=== PATIENT | male | born 1960 | race Caucasian/White ===

== ENCOUNTER 2016-10-13 01:08 | Observation (INO) | payer BC ==
[~2016-10-13] VITALS: Ht 185.4 cm; Wt 102.4 kg
[2016-10-13] VITALS (7 sets, daily range): BP systolic 116–137; BP diastolic 75–94; PULSE 47–78; TEMP 36.4–37.5; O2SAT 96–99; Ht 185.4 cm; Wt 102.4 kg
[~2016-10-13 01:08] MED LIST: ASPEC81 PO; LPT20 PO
[2016-10-13] MEDS ORDERED: SODIUM CHLORIDE 0.9% 1000ML 1,000 ML IV ONE (01:30)
[2016-10-13 01:33] LABS: BASO % 0.6 %; BASO ABS # 0.04 K/uL (0-0.2); COMPLETE YES; EOS % 3.3 %; HEMATOCRIT 44.7 % (42-52); IG% 0.3 %; LYMPH % 27.4 %; LYMPH ABS # 1.76 K/uL (1.2-3.4); MEAN CELL VOLUME 87.1 fL (80-100); MEAN CORPUSCULAR HEMOGLOBIN 30.2 pg (25-34); MEAN CORPUSCULAR HGB CONC 34.7 g/dl (32-36); MEAN PLATELET VOLUME 10.7 fL (7.4-10.4); MONO % 11.4 %; PLATELET COUNT 179 K/uL (130-400); RED BLOOD COUNT 5.13 M/uL (4.7-6.1); WHITE BLOOD COUNT 6.43 K/uL (4.8-10.8)
[2016-10-13] MEDS ORDERED: DILTIAZEM HCL 5 MG/ML 5 ML VIAL IV STA (01:41)
[2016-10-13 01:43] LABS: URINE APPEARANCE CLEAR (CLEAR); URINE BILIRUBIN NEG (NEG); URINE COLOR YELLOW; URINE NITRITE NEG (NEG); URINE SPECIFIC GRAVITY 1.006 (1.000-1.030); UROBILINOGEN NEG (NEG); ZZUR CULT IF INDIC CLEAN CATCH NO
[2016-10-13] MEDS ORDERED: CLB/200 PO (01:43)
[2016-10-13] MEDS ORDERED: METO25TA3 PO (01:43)
[2016-10-13 01:54] LABS: MANUAL MICROSCOPIC REQUIRED? NO; REVIEW REQ? NO
[2016-10-13 01:55] LABS: BUN/CREATININE RATIO 18.2 (10-20); CREATININE 1.1 mg/dl (0.60-1.40); MAGNESIUM 2.4 mg/dl (1.8-2.4); POTASSIUM 3.7 mmol/L (3.5-5.1)
[2016-10-13 02:06] LABS: ALB/GLOB RATIO 1.3 (0.9-2); CKMB/CK RATIO 1.1 (0-3.0); THYROID STIMULATING HORMONE 3.51 uIu/ml (0.300-4.500)
[2016-10-13] MEDS ORDERED: POTASSIUM CHLORIDE 10 MEQ TABCR PO STA (02:19)
[2016-10-13] MEDS ORDERED: POTASSIUM CHLORIDE 10 MEQ TABCR ONE (02:25)
[2016-10-13 02:29] LABS: LYME DISEASE AB IGG NEG (NEG); LYME DISEASE AB IGM NEG (NEG)
[2016-10-13 02:34] LABS: PARTIAL THROMBOPLASTIN RATIO 1.1
[2016-10-13] MEDS ORDERED: HEPARIN IV LOW DOSE NO BOLUS STA (03:01)
[2016-10-13] MEDS ORDERED: METOPROLOL SUCC 50MG EXT REL TAB PO STA (03:12)
[2016-10-13] MEDS ORDERED: ACETAMINOPHEN 325 MG TAB PO PRN (03:15)
[2016-10-13] MEDS ORDERED: LORAZEPAM 2 MG/ML 1 ML VIAL IV PRN (03:15)
[2016-10-13] MEDS ORDERED: TRAMADOL HCL 50 MG TAB PO PRN (03:15)
[2016-10-13] MEDS ORDERED: MoRPHine SULFATE 4 MG/ML 1 ML CARP\\VIAL IV PRN (03:15)
[2016-10-13] MEDS ORDERED: NITROGLYCERIN 0.4 MG SL PER TAB CHARGE SL PRN (03:15)
[2016-10-13] MEDS ORDERED: ONDANSETRON INJ 2 MG/ML 2 ML VIAL IV PRN (03:15)
[2016-10-13] MEDS ORDERED: LORAZEPAM INJ 0.5 MG in SYRINGE 0.75 ML IV PRN (03:30)
--- NOTE | 2016-10-13 03:53 | EMERGENCY ROOM VISIT NOTE ---
History First contact with patient: 01:20 Chief Complaint: RAPID HEART RATE Stated Complaint: AFIB Nursing Triage Summary: dc/o bout of " afib" denies any cp or sob. for 40 minutes History of Present Illness The patient is a 56 year old male who presents to the Emergency Room with complaints of palpitations that have been ongoing for the past 45 minutes. The patient has a past history of atrial fibrillation, and he states is similar to those episodes. He was feeling well all day, and states that he got up to use the bathroom tonight, when he felt his heart racing. The patient is not having chest pain or shortness of breath. No headache or dizziness. The patient has not had recent illness. He is on metoprolol and a baby aspirin, and states he took his medications earlier today. The patient is otherwise healthy and rates his current discomfort a 4/10. Review of Systems More than 10 systems were reviewed and otherwise negative with the exception of history of present illness. Past Medical/Surgical History Medical Problems: (1) Atrial fibrillation, new onset (2) Heart murmur (3) Hyperlipidemia (4) recurrent atrial fibrillation Family History Cardiac disorder FATHER MOTHER Diabetes mellitus MOTHER FH: atrial fibrillation FH: heart disease Hypertension Social History Smoking Status: Never Smoker Alcohol Use: none Drug Use: none Marital Status: in relationship Housing Status: lives with significant other Occupation Status: employed Current/Historical Medications Scheduled Aspirin (Aspirin EC Low Dose), 81 MG PO QAM Atorvastatin (Atorvastatin Calcium), 20 MG PO QAM Celecoxib (CeleBREX), 200 MG PO QAM Metoprolol Succ (Toprol Xl) (Toprol-Xl), 25 MG PO DAILY Allergies Coded Allergies: Penicillins (Verified Allergy, Unknown, childhood reaction, 10/13/16) Physical Exam Vital Signs Date Time Temp Pulse Resp B/P (MAP) Pulse Ox O2 Delivery O2 Flow Rate FiO2 10/13/16 02:06 83 18 144/98 99 Room Air 10/13/16 01:55 97 18 140/87 96 Room Air 10/13/16 01:21 121 10/13/16 01:20 118 20 134/113 99 Room Air 10/13/16 01:18 97 Room Air 10/13/16 01:18 98 Room Air 10/13/16 01:11 36.6 119 18 143/72 96 Room Air Physical Exam VITALS: Vitals are noted on the nurse's note and reviewed by myself. Vital signs stable. GENERAL: Well-developed, well-nourished, white male, who is in no acute distress and resting comfortably. Patient is cooperative with the examination. HEAD: Normocephalic atraumatic. EARS: External ear normal. External auditory canals clear, tympanic membranes pearly quarles without erythema or effusion bilaterally. EYES: Pupils equal round and reactive to light and accommodation. Conjunctivae without injection, sclerae without icterus. Extraocular movements intact. NOSE: Patent, turbinates without inflammation or discharge. MOUTH: Mucous membranes moist. Tonsils are not enlarged. Pharynx without erythema, blood, or exudate. Uvula midline. Airway patent. NECK: Supple without nuchal rigidity. No lymphadenopathy. No thyromegaly. Cervical spine is nontender. HEART: Irregularly irregular without murmur gallop or rub LUNGS: Clear to auscultation bilaterally without wheezes, rales or rhonchi. No retractions or accessory muscle use. ABDOMEN: Positive normal bowel sounds x 4. Soft, nontender, without masses or organomegaly. No guarding or rebound tenderness. MUSCULOSKELETAL: No muscle atrophy, erythema, or edema noted. Full range of motion without joint tenderness in all extremities. Medical Decision & Procedures Laboratory Results 10/13/16 01:20 Red Blood Count 5.13, Mean Corpuscular Volume 87.1, Mean Corpuscular Hemoglobin 30.2, Mean Corpuscular Hemoglobin Concent 34.7, Mean Platelet Volume 10.7, Neutrophils (%) (Auto) 57.0, Lymphocytes (%) (Auto) 27.4, Monocytes (%) (Auto) 11.4, Eosinophils (%) (Auto) 3.3, Basophils (%) (Auto) 0.6, Neutrophils # (Auto ) 3.67, Lymphocytes # (Auto) 1.76, Monocytes # (Auto) 0.73, Eosinophils # (Auto ) 0.21, Basophils # (Auto) 0.04 10/13/16 01:20 Test 10/13/16 01:20 10/13/16 01:29 10/13/16 01:31 White Blood Count 6.43 K/uL (4.8-10.8) Red Blood Count 5.13 M/uL (4.7-6.1) Hemoglobin 15.5 g/dL (14.0-18.0) Hematocrit 44.7 % (42-52) Mean Corpuscular Volume 87.1 fL (80-100) Mean Corpuscular Hemoglobin 30.2 pg (25-34) Mean Corpuscular Hemoglobin Concent 34.7 g/dl (32-36) Platelet Count 179 K/uL (130-400) Mean Platelet Volume 10.7 fL (7.4-10.4) Neutrophils (%) (Auto) 57.0 % Lymphocytes (%) (Auto) 27.4 % Monocytes (%) (Auto) 11.4 % Eosinophils (%) (Auto) 3.3 % Basophils (%) (Auto) 0.6 % Neutrophils # (Auto) 3.67 K/uL (1.4-6.5) Lymphocytes # (Auto) 1.76 K/uL (1.2-3.4) Monocytes # (Auto) 0.73 K/uL (0.11-0.59) Eosinophils # (Auto) 0.21 K/uL (0-0.5) Basophils # (Auto) 0.04 K/uL (0-0.2) RDW Standard Deviation 40.6 fL (36.4-46.3) RDW Coefficient of Variation 12.6 % (11.5-14.5) Immature Granulocyte % (Auto) 0.3 % Immature Granulocyte # (Auto) 0.02 K/uL (0.00-0.02) Activated Partial Thromboplast Time 27.6 SECONDS (21.0-31.0) Partial Thromboplastin Ratio 1.1 Anion Gap 8.0 mmol/L (3-11) Est Creatinine Clear Calc Drug Dose 94.0 ml/min Estimated GFR () 85.9 Estimated GFR (Non- 74.1 BUN/Creatinine Ratio 18.2 (10-20) Calcium Level 9.0 mg/dl (8.5-10.1) Magnesium Level 2.4 mg/dl (1.8-2.4) Total Bilirubin 0.8 mg/dl (0.2-1) Aspartate Amino Transf (AST/SGOT) 23 U/L (15-37) Alanine Aminotransferase (ALT/SGPT) 36 U/L (12-78) Alkaline Phosphatase 91 U/L (45-117) Total Creatine Kinase 238 U/L (39-308) Creatine Kinase MB 2.6 ng/ml (0.5-3.6) Creatine Kinase MB Ratio 1.1 (0-3.0) Total Protein 7.5 gm/dl (6.4-8.2) Albumin 4.2 gm/dl (3.4-5.0) Globulin 3.3 gm/dl (2.5-4.0) Albumin/Globulin Ratio 1.3 (0.9-2) Lipase 96 U/L (73-393) Thyroid Stimulating Hormone (TSH) 3.510 uIu/ml (0.300-4.500) Lyme Disease IgG Antibody NEG (NEG) Lyme Disease IgM Antibody NEG (NEG) Urine Color YELLOW Urine Appearance CLEAR (CLEAR) Urine pH 6.0 (4.5-7.5) Urine Specific [place] 1.006 (1.000-1.030) Urine Protein NEG (NEG) Urine Glucose (UA) NEG (NEG) Urine Ketones NEG (NEG) Urine Occult Blood NEG (NEG) Urine Nitrite NEG (NEG) Urine Bilirubin NEG (NEG) Urine Urobilinogen NEG (NEG) Urine Leukocyte Esterase NEG (NEG) Bedside Troponin I 0.000 ng/ml (0-0.045) Medications Administered Medications (Trade) Dose Ordered Sig/Jv Route Start Time Stop Time Status Last Admin Dose Admin Sodium Chloride 1,000 ml @ 999 mls/hr Q1H1M ONCE IV 10/13/16 01:30 10/13/16 02:30 DC 10/13/16 01:29 999 MLS/HR Diltiazem HCl (Cardizem Inj) 20 mg NOW STAT IV 10/13/16 01:41 10/13/16 01:42 DC 10/13/16 02:01 20 MG Potassium Chloride (Klor-Con M10) 40 meq STK-MED ONCE .ROUTE 10/13/16 02:25 10/13/16 02:26 DC 10/13/16 02:27 40 MEQ ED Course Physical exam and history were performed. Nursing notes and EMR were reviewed. Patient appears to have palpitations for the past 2 hours. EKG was performed and was atrial fibrillation with RVR at 120 beats per minute. There is a nonspecific ST abnormality, however this appears similar in appearance when the patient has been in atrial fibrillation in the past. IV access was established and labs were obtained. Chest x-ray was performed. The patient was hydrated with normal saline and given IV Cardizem. The patient's blood work is as above and was reviewed. He does not have a significantly elevated white cell count, gross anemia, bandemia, or significant electrolyte imbalance. Troponin 1 is negative. TSH is euthyroid. Lyme is negative. The case was discussed with my attending physician, Dr. Toscano, we feel the patient is not stable for discharge home. He did have improvement of his symptoms after the Cardizem, but he remained in atrial fibrillation around a rate of 70. The case was discussed with the [facility], who agreed to evaluate the patient here in the emergency department. Please see their dictation for further patient course, plan, and disposition. The chart was completed utilizing [employer] Speech Voice Recognition Software. Grammatical errors, random word insertions, pronoun errors, and incomplete sentences are an occasional consequence of this system due to software limitations, ambient noise, and hardware issues. Any formal questions or concerns about the content, text, or information contained within the body of this dictation should be directly addressed to the provider for clarification. . Medical Decision Differential diagnosis includes, but is not limited to: Myocardial infarction, dysrhythmia, pericarditis, pneumothorax, aortic aneurysm/dissection, DVT/PE, anxiety, GERD, PUD, electrolyte imbalance, thyroid disorder, pneumonia, bronchitis, pancreatitis, and others Impression Primary Impression: Atrial fibrillation with rapid ventricular response Departure Information Referrals Manuel Alvarado M.D. (PCP) Patient Instructions My [facility]
[2016-10-13] MEDS ORDERED: SODIUM CHLOR 0.45% + 20MEQ KCL 1,000 ML IV SCH (04:00)
[2016-10-13] MEDS: HEPARIN 25,000 UNIT/500ML D5W 500 ML IV PRN ×2 (04:00→11:16)
[2016-10-13 04:47] LABS: PROTHROMBIN TIME (PATIENT) 10.7 SECONDS (9.0-12.0)
--- NOTE | 2016-10-13 05:49 | HISTORY & PHYSICAL EXAMINATION ---
DATE OF ADMISSION: 10/13/2016 PRIMARY CARE PHYSICIAN: Dr. Alvarado. CHIEF COMPLAINT: AFib. HISTORY OF PRESENT ILLNESS: HX obtained from px and records. Medical history is significant for paroxysmal AFib, hyperlipidemia, arthritis. Recent confinement last year for AFib. Patient had spontaneous conversion to normal sinus rhythm. Discharged on Toprol XL and aspirin. Few weeks ago, the patient received a call from PCP. He was told that outpx blood work was normal except that patient was a little anemic. (outpx Hg 12.9, 09/12/16) No workup recommended at that time. Patient stopped taking aspirin because his stools kind of looked dark. No abdominal pian, no unusual weight loss. A week ago, the patient noted transient bubbling sensation in his heart, left-sided, palpitations, similar to sensation of irregular heart beat in the past. This morning, the patient woke up to go use the bathroom. After going back to bed, he felt funny sensation in his heart again. No actual chest pain. No actual shortness of breath. No unusual stress. In the Emergency Room, the patient noted to be in rapid AFib, heart rate 120s. Patient was given IV Cardizem and IV fluids. Heart rate currently 80s. MEDICAL HISTORY: As above. No previous colonoscopies in the past. SURGERIES: None. HOME MEDICATIONS: Include Lipitor, Toprol-XL, Viagra, celecoxib, aspirin held last week. ALLERGIES: TO PENICILLIN. FAMILY HISTORY: Heart disease. 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 REVIEW OF SYSTEMS: As per HPI. all other ROS negative. PHYSICAL EXAMINATION: VITAL SIGNS: Blood pressure was noted to be 144/72, pulse rate 120 later 80, RR 18, temperature 36.6, sats 96 on room air. GENERAL: Noted to be obese, slightly anxious, no respiratory distress. SKIN: Normal color. HEENT: [place] palpebral conjunctivae. Dry mucosa. NECK: No JVD. Supple. CHEST: Clear to auscultation. HEART: Irregular. ABDOMEN: Soft. NT RECTAL: Intact sphincter. Brown stool, heme negative. EXTREMITIES: No edema. no tenderness NE no gross focality LABS: Hemoglobin was noted to be 15.5, hematocrit 40.7, white cell count 10, platelets 179. Sodium 146, potassium 4.7, chloride 109, CO2 of 29, BUN 20, creatinine 1, glucose was noted to be 97. trop 0 Chest x-ray as per my interpretation. no infiltrate as EKG as per my interpretation, rate 120, AFib, PRWP ASSESSMENT: 1. Recurrent atrial fibrillation rate controlled after initial intervention in the ER unknown precipitant intermittent symptoms since last week. 2. Hyperlipidemia, statin therapy. PLAN: Observation PCU. facilitate home beta kassi, may need dose titration low dose IV heparin now for thromboembolic prevention. TTE, Cardio consult RE recurrent AFib. Further management as per Cardiology, NPO, sips in anticiopation of procedure. DVT prophylaxis, heparin. Full code. MTDD
--- NOTE | 2016-10-13 06:57 | DIAGNOSTIC IMAGING REPORT ---
CHEST 2 VIEWS ROUTINE CLINICAL HISTORY: Atrial fibrillation. COMPARISON STUDY: Chest radiograph October 09, 2015. FINDINGS: Lung volumes are normal. Lungs are clear. There is no pneumothorax or pleural effusion. Cardiac size is normal. Mediastinal contours are normal. There is no evidence of pulmonary edema. IMPRESSION: No acute cardiopulmonary findings. Electronically signed by: Arvin Enamorado M.D. 10/13/2016 6:56 AM Dictated Date/Time: 10/13/2016 6:55 AM
[2016-10-13] MEDS ORDERED: IV FLUIDS COMPLETED PRN (07:30)
[2016-10-13] MEDS: ATORVASTATIN 20 MG TAB PO SCH (08:39)
[2016-10-13 09:35] LABS: MANUAL MICROSCOPIC REQUIRED? NO; REVIEW REQ? NO; URINE APPEARANCE CLEAR (CLEAR); URINE BILIRUBIN NEG (NEG); URINE COLOR YELLOW; URINE EPITHELIAL CELL AUTO 0-5 /lpf (0-5); URINE NITRITE NEG (NEG); URINE SPECIFIC GRAVITY 1.016 (1.000-1.030); UROBILINOGEN NEG (NEG)
[2016-10-13 10:31] LABS: PARTIAL THROMBOPLASTIN RATIO 1.3
--- NOTE | 2016-10-13 11:04 | Progress Note ---
Medicine Progress Note Date & Time of Visit: Oct 13, 2016 at 10:50. Subjective Pt was seen and examined Lying in bed comfortable with at bedside Pt said that he feels fine he is very eager to go home denies any chest pain, palpitation, dizziness and sob Objective Last 8 Hrs Date Time Temp Pulse Resp B/P (MAP) Pulse Ox O2 Delivery O2 Flow Rate FiO2 10/13/16 08:00 Room Air 10/13/16 07:51 36.5 47 18 127/78 (94) 98 Room Air 10/13/16 03:15 36.5 78 18 137/94 97 Room Air 10/13/16 02:57 86 19 127/91 97 Physical Exam: General- No acute distress Head- atraumatic Eyes- PERRL, EOMI ENT- oropharynx clear Neck- supple, no JVD Lungs- clear to auscultation and percussion Heart- regular rhythm; no murmur Abdomen- normal bowel sounds, soft Extremities- no pretibial edema, no calf tenderness Neuro- alert, oriented x 3; PERRL, EOMI; no facial palsy; no dysarthria Skin- warm & dry Laboratory Results: Last 24 Hours Test 10/13/16 01:20 10/13/16 01:29 10/13/16 01:31 10/13/16 04:35 White Blood Count 6.43 K/uL Red Blood Count 5.13 M/uL Hemoglobin 15.5 g/dL Hematocrit 44.7 % Mean Corpuscular Volume 87.1 fL Mean Corpuscular Hemoglobin 30.2 pg Mean Corpuscular Hemoglobin Concent 34.7 g/dl Platelet Count 179 K/uL Mean Platelet Volume 10.7 fL Neutrophils (%) (Auto) 57.0 % Lymphocytes (%) (Auto) 27.4 % Monocytes (%) (Auto) 11.4 % Eosinophils (%) (Auto) 3.3 % Basophils (%) (Auto) 0.6 % Neutrophils # (Auto) 3.67 K/uL Lymphocytes # (Auto) 1.76 K/uL Monocytes # (Auto) 0.73 K/uL Eosinophils # (Auto) 0.21 K/uL Basophils # (Auto) 0.04 K/uL RDW Standard Deviation 40.6 fL RDW Coefficient of Variation 12.6 % Immature Granulocyte % (Auto) 0.3 % Immature Granulocyte # (Auto) 0.02 K/uL Activated Partial Thromboplast Time 27.6 SECONDS Partial Thromboplastin Ratio 1.1 Sodium Level 146 mmol/L Potassium Level 3.7 mmol/L Chloride Level 109 mmol/L Carbon Dioxide Level 29 mmol/L Anion Gap 8.0 mmol/L Blood Urea Nitrogen 20 mg/dl Creatinine 1.10 mg/dl Est Creatinine Clear Calc Drug Dose 94.0 ml/min Estimated GFR () 85.9 Estimated GFR (Non- 74.1 BUN/Creatinine Ratio 18.2 Random Glucose 97 mg/dl Calcium Level 9.0 mg/dl Magnesium Level 2.4 mg/dl Total Bilirubin 0.8 mg/dl Aspartate Amino Transf (AST/SGOT) 23 U/L Alanine Aminotransferase (ALT/SGPT) 36 U/L Alkaline Phosphatase 91 U/L Total Creatine Kinase 238 U/L Creatine Kinase MB 2.6 ng/ml Creatine Kinase MB Ratio 1.1 Total Protein 7.5 gm/dl Albumin 4.2 gm/dl Globulin 3.3 gm/dl Albumin/Globulin Ratio 1.3 Lipase 96 U/L Thyroid Stimulating Hormone (TSH) 3.510 uIu/ml Lyme Disease IgG Antibody NEG Lyme Disease IgM Antibody NEG Urine Color YELLOW Urine Appearance CLEAR Urine pH 6.0 Urine Specific [place] 1.006 Urine Protein NEG Urine Glucose (UA) NEG Urine Ketones NEG Urine Occult Blood NEG Urine Nitrite NEG Urine Bilirubin NEG Urine Urobilinogen NEG Urine Leukocyte Esterase NEG Bedside Troponin I 0.000 ng/ml Prothrombin Time 10.7 SECONDS Prothromb Time International Ratio 1.0 Test 10/13/16 08:00 10/13/16 09:20 10/13/16 10:10 Troponin I < 0.015 ng/ml Urine Color YELLOW Urine Appearance CLEAR Urine pH 7.0 Urine Specific [place] 1.016 Urine Protein NEG Urine Glucose (UA) NEG Urine Ketones NEG Urine Occult Blood NEG Urine Nitrite NEG Urine Bilirubin NEG Urine Urobilinogen NEG Urine Leukocyte Esterase NEG Urine WBC (Auto) 0 /hpf Urine RBC (Auto) 0-4 /hpf Urine Hyaline Casts (Auto) 0 /lpf Urine Epithelial Cells (Auto) 0-5 /lpf Urine Bacteria (Auto) NEG Activated Partial Thromboplast Time 34.3 SECONDS Partial Thromboplastin Ratio 1.3 Assessment & Plan Recurrent Paroxysmal atrial fibrillation EKG on admission showed Atrial fibrillation with rapid ventricular response rate is controlled Converted back to NSR spontaneously this morning On heparin drip Received cardizem 20mg x1 IV Asymptomatic Pt stopped asa due to mild anemia, Will resume aspirin CHADSVASC score of 0 Continue metoprolol 25mg daily Echo pending Cardiology on board, waiting for input Dyslipidemia Continue Lipitor Anxiety On lorazepam prn DVT px on heparin drip Code Status Full code Consultants: cardiology Current Inpatient Medications: Current Inpatient Medications Medications (Trade) Dose Ordered Sig/Jv Route Start Time Stop Time Status Last Admin Dose Admin Potassium Chloride/Sodium Chloride 1,000 ml @ 60 mls/hr [id number] IV 10/13/16 04:00 11/12/16 03:59 10/13/16 03:45 60 MLS/HR Acetaminophen (Tylenol Tab) 650 mg Q4H PRN PO 10/13/16 03:15 11/12/16 03:14 Nitroglycerin (Nitrostat Tab) 0.4 mg UD PRN SL 10/13/16 03:15 11/12/16 03:14 Atorvastatin Calcium (Lipitor Tab) 20 mg QAM PO 10/13/16 09:00 11/12/16 08:59 10/13/16 08:39 20 MG Metoprolol Succinate (Toprol Xl Tab) 25 mg DAILY PO 10/14/16 09:00 11/13/16 08:59 Tramadol HCl (Ultram Tab) 25 mg Q6H PRN PO 10/13/16 03:15 11/12/16 03:14 Ondansetron HCl (Zofran Inj) 4 mg Q6H PRN IV 10/13/16 03:15 11/12/16 03:14 Lorazepam (Ativan Inj) 0.5 mg Q4H PRN IV 10/13/16 03:15 11/12/16 03:14 Morphine Sulfate (MoRPHine SULFATE INJ) 4 mg Q3H PRN IV 10/13/16 03:15 10/27/16 03:14 Lorazepam 0.5 mg/ Syringe 1 ml @ 1 mls/min Q4H PRN IV 10/13/16 03:30 11/12/16 03:29 Heparin Sodium/ Dextrose 500 ml @ 20 mls/hr Q24H PRN IV 10/13/16 04:00 11/12/16 03:59 10/13/16 04:00 20 MLS/HR Miscellaneous (Iv Fluids Completed) 1 ea PRN PRN N/A 10/13/16 07:30 10/13/17 07:29
[2016-10-13] MEDS ORDERED: HEPARIN IV BOLUS 4,500 UNIT in SYRINGE 0 ML IV STA (11:07)
--- NOTE | 2016-10-13 11:32 | Cardiology Consultation ---
Cardiology Consultation Date of Service Oct 13, 2016. (Priscila Lino, GHADA) Cardiology Consultation Requesting Physician: Dr. Malcolm Attending Dredge Pipeman: Dr. Gorman HISTORY OF PRESENT ILLNESS: Patient is a 56-year-old male with a past medical history significant for paroxysmal atrial fibrillation diagnosed in October, maintained on low-dose Toprol 25 mg and aspirin 81 mg for stroke prophylaxis. Other history includes dyslipidemia. patient was recently told he was mildly anemic on outpatient labs and stopped his aspirin approximately 10 days ago. He reports having intermittent darker colored stools without gross bleeding. On review hemoglobin was 12.9. Patient states he was in usual state of health yesterday and last evening. He went to bed as usual, he awoke around 1:00 a.m. to use the restroom and developed sudden onset palpitations. He was brought to the emergency room for evaluation and found to have recurrent atrial fibrillation with rapid ventricular response. He was started on IV Cardizem and heparin drip. Patient converted to normal sinus rhythm this morning prior to consultation around 5:40 a.m.. Patient states he has been taking is metoprolol daily. He does note an episode of palpitations this past Wednesday that lasted 1-2 hours and resolve spontaneously. Otherwise he denies recent or recurrent palpitations. He is active and exercises regularly denying chest pain or shortness of breath. REVIEW OF SYSTEMS: See HPI for pertinent positives. All other 10 point review of systems is negative. ALLERGIES: PENICILLIN. MEDICATIONS: Reported Home Medications Medications Dose Route/Sig Max Daily Dose Days Date Category CeleBREX (Celecoxib) 200 Mg Cap 200 Mg PO QAM 10/13/16 Reported Toprol-Xl (Metoprolol Succinate) 25 Mg Tabcr 25 Mg PO DAILY 10/13/16 Reported Aspirin EC Low Dose (Aspirin) 81 Mg Ectab 81 Mg PO QAM 100 10/10/15 Rx Atorvastatin Calcium (Atorvastatin) 20 Mg Tab 20 Mg PO QAM 90 10/10/15 Rx PMH: 1. PAF 2. Dyslipidemia 3. Osteoarthritis 4. ED SURGICAL HISTORY: None FAMILY HISTORY: Mother with congestive heart failure, passing away age 66. Father passing away after [place] age 55. Brother with afib. Sister with stroke due to AVM SOCIAL HISTORY: No history of alochol or tobacco abuse. . 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 PHYSICAL EXAMINATION: Last 8 Hrs Date Time Temp Pulse Resp B/P (MAP) Pulse Ox O2 Delivery O2 Flow Rate FiO2 10/13/16 08:00 Room Air 10/13/16 07:51 36.5 47 18 127/78 (94) 98 Room Air 10/13/16 03:15 36.5 78 18 137/94 97 Room Air GENERAL: He is an age appropriate male, comfortable in no acute distress. VITAL SIGNS: Heart rate 60, blood pressure is 135/80 equal in both arms. HEENT EXAMINATION: Normocephalic, atraumatic. Nares without discharge. Throat was clear. NECK: Supple without thyromegaly, lymphadenopathy, JVD or bruit. LUNGS: Clear to auscultation. CARDIOVASCULAR EXAMINATION: Regular with normal S1, S2. S2 appears narrowly split. There is a grade 2/6 systolic murmur. There is no diastolic murmur. PMI is nondisplaced. ABDOMEN: Soft, nontender. EXTREMITIES: Without cyanosis or clubbing. There is no peripheral edema. There are intact distal pulses. There is no brachial femoral delay. NEUROLOGIC: The patient is intact. DATA: EKG on admission: Atrial fibrillation with rapid ventricular response Nonspecific ST abnormality Abnormal ECG When compared with ECG of 09-OCT-2015 07:37, Atrial fibrillation has replaced Sinus rhythm Vent. rate has increased BY [address] now depressed in Anterior leads Chest xray on admission: IMPRESSION: No acute cardiopulmonary findings. Telemetry reviewed - Afib with RVR on admission, rates improved with IV cardizem. Converting to NSR/sinus bradycardia at 5:40 AM. Currently sinus bradycardia with HR 45-55 bpm. Prior Data reviewed - Echocardiogram dated October 2015: The left ventricle is normal in size. There is normal left ventricular wall thickness. Left ventricular systolic function is normal. The left ventricular wall motion is normal. Ejection Fraction = 60-65 IMPRESSION and PLAN: 56-year-old male 1. Paroxysmal atrial fibrillation with RVR -converted to NSR with IV Cardizem -on toprol 25 mg daily. Limited by bradycardia -Was on ASA 81 mg, stopped due to mild anemia. No evidence of acute GI bleed. Hbg improved on admission. Resume ASA 81 mg daily. -CHADSVASC score of 0 (low risk for stroke). May not need fdc anticoagulation therapy -update 2D echocardiogram Case discussed with Dr. Gorman.Will follow. (Priscila Lino PA-C) CARDIOLOGY ATTENDING ADDENDUM: The patient was seen and personally examined. Agree with Priscila Lino PA-C's findings and plans as documented above with additions as noted below. S: patient feels well. When in AF notes a sensation in his neck. No angina. No lightheadedness now or when in AF. Exam: SB 50 bpm, reg rhythm, no murmurs Data: Telemetry reveals AF to SB with cardizem (since discontinued) no pauses. Baseline resting sinus rate is 48-55 bpm. Impression: Recurrent AF baseline Sinus bradycardia , asymptomatic, however limits dose of AV елена blockers Low risk of cardioembolic stroke, [id number] score of 0. Plan: Hg is normal, despite recent concern of mild anemia as outpt. DC heparin infusion, start Xarelto for now, however given low risk of stroke will likely plan to DC on ASA alone if remains in SR. Continue metoprolol succinate 25 mg daily. Add low dose flecainide 50 mg BID for rhythm control. Echo with normal LV wall thickness, no significant structural heart disease, and patient is physically active with no symptoms to suggest underlying ischemia. Monitor on telemetry for flecainide initiation. Yaakov Gorman DO (Chester Gorman,Angel.O.)
[2016-10-13] MEDS ORDERED: FLECAINIDE ACETATE 100 MG TAB PO ONE (12:58)
--- NOTE | 2016-10-13 13:00 | ECHOCARDIOGRAM REPORT ---
*NOTICE TO RECEIVING REPUBLICAN AGENCY This information is strictly Confidential and protected under [place] law. [place] law prohibits you from making any further disclosure of this information unless further disclosure is expressly permitted by the written consent of the person to whom it pertains or is authorized by law. A general authorization for the release of medical or other information is not sufficient for this purpose. Hospital accepts no responsibility if the information is made available to any other person, INCLUDING THE PATIENT. Interpretation Summary * Name: LISSET CENTENO Study Date: 10/13/2016 11:25 AM BP: 119/76 mmHg * Patient Location: [facility] HR: 47 * : 1960 (M/d/yyyy) Gender: Male Height: 73 in * Age: 56 yrs Ethnicity: [place] Weight: 230 lb * Ordering Physician: Samson Malcolm * Referring Physician: Self, Referred * Performed By: Helga Torres RCS * * Reason For Study: A-FIB * BSA: 2.3 m2 * -- Conclusions -- * There is normal left ventricular wall thickness. * The left ventricular wall motion is normal. * Ejection Fraction = 60-65%. * The right ventricle is normal in size and function. * Trace aortic regurgitation. Procedure Details * A complete two-dimensional transthoracic echocardiogram was performed (2D, M-mode, Doppler and color flow Doppler). Left Ventricle * The left ventricle is normal in size. * There is normal left ventricular wall thickness. * Left ventricular systolic function is normal. * Ejection Fraction = 60-65%. * The left ventricular wall motion is normal. Right Ventricle * The right ventricle is normal in size and function. * The right ventricular systolic function is normal as assessed by tricuspid annular plane systolic excursion (TAPSE) (normal >1.5 cm). Atria * The left atrial size is normal. * Right atrial size is normal. * There is no evidence of atrial septal defect, but resolution does not allow assessment for a patent foramen ovale. Mitral Valve * The mitral valve is normal. * There is no mitral valve stenosis. * Significant mitral regurgitation is absent. Tricuspid Valve * The tricuspid valve is normal. * There is no tricuspid stenosis. * Significant tricuspid regurgitation is absent. * Doppler findings do not suggest pulmonary hypertension. Aortic Valve * The aortic valve is trileaflet. * Aortic stenosis is absent. * Trace aortic regurgitation. Pulmonic Valve * The pulmonary valve is not well seen, but the Doppler examination is normal without significant regurgitation or stenosis. Great Vessels * The aortic root and proximal ascending aorta are normal sized. Pericardium/Pleural * There is no pericardial effusion. Great Vessels * Normal inferior vena cava diameter and respiratory variation suggests normal central venous pressure. MMode 2D Measurements and Calculations IVSd 1.2 cm IVSs 1.7 cm LVIDd 5.8 cm LVIDs 3.8 cm LVPWd 0.89 cm LVPWs 1.4 cm IVS/LVPW 1.3 FS 34.5 % EDV(Teich) 164.1 ml ESV(Teich) 60.9 ml EF(Teich) 62.9 % EDV(cubed) 191.4 ml ESV(cubed) 53.8 ml EF(cubed) 71.9 % % IVS thick 44.6 % % LVPW thick 57.5 % LV mass(C)d 238.4 grams LV mass(C)dI 104.4 grams/m\S\2 LV mass(C)s 223.9 grams LV mass(C)sI 98.0 grams/m\S\2 SV(Teich) 103.2 ml SI(Teich) 45.2 ml/m\S\2 SV(cubed) 137.6 ml SI(cubed) 60.3 ml/m\S\2 Ao root diam 3.4 cm Ao root area 9.0 cm\S\2 ACS 2.2 cm LVOT diam 2.0 cm LVOT area 3.2 cm\S\2 LVAd ap4 33.4 cm\S\2 LVLd ap4 8.1 cm EDV(MOD-sp4) 112.4 ml EDV(sp4-el) 116.6 ml LVAs ap4 17.0 cm\S\2 LVLs ap4 6.6 cm ESV(MOD-sp4) 38.5 ml ESV(sp4-el) 37.1 ml EF(MOD-sp4) 65.7 % EF(sp4-el) 68.2 % LVAd ap2 29.7 cm\S\2 LVLd ap2 8.4 cm EDV(MOD-sp2) 89.9 ml EDV(sp2-el) 89.4 ml LVAs ap2 21.8 cm\S\2 LVLs ap2 7.6 cm ESV(MOD-sp2) 51.8 ml ESV(sp2-el) 52.9 ml EF(MOD-sp2) 42.3 % EF(sp2-el) 40.8 % LVLd %diff 2.8 % EDV(MOD-bp) 101.4 ml LVLs %diff 13.6 % ESV(MOD-bp) 48.1 ml EF(MOD-bp) 52.6 % SV(MOD-sp4) 73.8 ml SI(MOD-sp4) 32.3 ml/m\S\2 SV(MOD-sp2) 38.0 ml SI(MOD-sp2) 16.6 ml/m\S\2 SV(MOD-bp) 53.3 ml SI(MOD-bp) 23.4 ml/m\S\2 SV(sp4-el) 79.5 ml SI(sp4-el) 34.8 ml/m\S\2 SV(sp2-el) 36.5 ml SI(sp2-el) 16.0 ml/m\S\2 Doppler Measurements and Calculations MV E max jose miguel 81.8 cm/sec MV A max jose miguel 45.7 cm/sec MV E/A 1.8 MV P1/2t max jose miguel 86.3 cm/sec MV P1/2t 76.7 msec MVA(P1/2t) 2.9 cm\S\2 MV dec slope 329.5 cm/sec\S\2 MV dec time 0.38 sec Ao V2 max 194.3 cm/sec Ao max PG 15.1 mmHg Ao max PG (full) 8.4 mmHg VICKY(V,A) 2.1 cm\S\2 VICKY(V,D) 2.1 cm\S\2 AI max jose miguel 418.4 cm/sec AI max PG 70.0 mmHg AI dec slope 108.8 cm/sec\S\2 AI P1/2t 1126.7 msec LV V1 max PG 6.7 mmHg LV V1 max 129.2 cm/sec PA V2 max 120.1 cm/sec PA max PG 5.8 mmHg TR max jose miguel 232.2 cm/sec
[2016-10-13] MEDS ORDERED: RIVAROXABAN 20 MG TAB PO SCH (16:00)
[2016-10-13] MEDS ORDERED: [UNRECOGNIZED DRUG - REMARK] ONE (16:00)
[2016-10-13] MEDS ORDERED: NURSING VERBAL MED ORDER ONE (19:30)
[2016-10-13] MEDS: FLECAINIDE ACETATE 100 MG TAB PO SCH (20:59)
[2016-10-14 04:00] VITALS: BP 124/78; PULSE 56; TEMP 36.7; O2SAT 96
[2016-10-14 05:47] LABS: BASO ABS # 0.04 K/uL (0-0.2); COMPLETE YES; EOS % 4.1 %; IG% 0.2 %; LYMPH % 32.3 %; LYMPH ABS # 1.34 K/uL (1.2-3.4); MEAN CELL VOLUME 87.6 fL (80-100); MEAN CORPUSCULAR HEMOGLOBIN 29.9 pg (25-34); MEAN CORPUSCULAR HGB CONC 34.1 g/dl (32-36); MEAN PLATELET VOLUME 10.5 fL (7.4-10.4); MONO % 10.8 %; NEUT % 51.6 %; PLATELET COUNT 154 K/uL (130-400); RED BLOOD COUNT 4.45 M/uL (4.7-6.1); WHITE BLOOD COUNT 4.15 K/uL (4.8-10.8)
[2016-10-14 06:23] LABS: BUN/CREATININE RATIO 16.7 (10-20); CALCIUM 8.5 mg/dl (8.5-10.1); POTASSIUM 4.7 mmol/L (3.5-5.1)
[2016-10-14 07:56] VITALS: BP 119/77; PULSE 46; TEMP 36.5; O2SAT 96
[2016-10-14] MEDS: ATORVASTATIN 20 MG TAB PO SCH (08:13)
[2016-10-14] MEDS: FLECAINIDE ACETATE 100 MG TAB PO SCH (08:13)
[2016-10-14] MEDS ORDERED: METOPROLOL SUCC 25MG EXT REL TAB PO SCH (09:00)
--- NOTE | 2016-10-14 10:01 | Cardiology Follow-Up ---
Subjective General Date of Service: Oct 14, 2016. Chief Complaint: afib Pt evaluation today including: conversation w/ patient, physical exam, chart review, lab review, review of studies, conversation w/ insurance healthcare consultant, review of inpatient medication list History of Present Illness Patient feeling well this AM. Ambulating in halls without dizziness, syncope or near syncope. No exertional chest pain or SOB. No palpitations. Telemetry reviewed - maintained NSR/sinus bradycardia since yesterday AM. Sinus diane in the 40's during rest/sleep. Asymptomatic. Allergies Coded Allergies: Penicillins (Verified Allergy, Unknown, childhood reaction, 10/13/16) Social History Smoking Status: Never Smoker Hx Tobacco Use In Past Year?: No Hx Alcohol Use - Type And Amou: No Hx Substance Use - Type And Am: No Problem List Medical Problems: (1) Atrial fibrillation with rapid ventricular response Status: Acute Review of Systems Respiratory: No cough, No wheezing, No shortness of breath, No dyspnea at rest , No hemoptysis Cardiac: No chest pain, No orthopnea, No PND, No edema, No palpitations Physical Exam Vital Signs Last Vital Signs Documentation Date Time Temp Pulse Resp B/P (MAP) Pulse Ox O2 Delivery O2 Flow Rate FiO2 10/14/16 08:00 Room Air 10/14/16 07:56 36.5 46 16 119/77 (43) 96 Physical Exam Constitutional: General Apperance: heathly-appearing Level of Distress: NAD Ambulation: ambulating normally Psychiatric: Mental Status: active & alert Orientation: to time, to place, to person Head: normocephalic Eyes: Pupils: PERRLA Neck: supple Lungs: Respiratory effort: no dyspnea Auscultation: no wheezing, no rales/crackles, no rhonchi Cardiovascular: Heart Auscultation: RRR, normal S1, normal S2, no murmurs Peripheral Pulses: Dorsalis Pedis Pulse: normal on the left, normal on the right Abdomen: Bowel Sounds: normal Inspection & Palpation: soft, non-distended Assessment and Plan Assessment and Plan IMPRESSION and PLAN: 56-year-old male 1. Paroxysmal atrial fibrillation with RVR, converted to NSR/Sinus diane on IV Cardizem -continue home dose Metoprolol Succinate 25 mg daily -Flecainide 50 mg BID added -CHADS score of 0 -Continue ASA 81 mg daily -Echo reviewed -Conclusions -- There is normal left ventricular wall thickness. The left ventricular wall motion is normal. Ejection Fraction = 60-65%. The right ventricle is normal in size and function. Trace aortic regurgitation. Stable cardiac signs/symptoms for discharge this AM. Discharge on Flecainide 50 mg BID, Toprol 25 mg daily, and ASA 81 mg daily. 2 week cardiology follow up will be scheduled at [facility] with Dr. Gorman or Maricarmen Lino. CARDIOLOGY ATTENDING ADDENDUM: The patient was seen and personally examined. Agree with Priscila Lino PA-C's findings and plans as documented above. S: patient feels well. He denies lightheadedness, dizziness, denies recurrent palpitations. Physical examination: The rhythm, no murmurs, extremities no edema Data: EKG reveals stable sinus bradycardia. Telemetry reveals sinus bradycardia without additional atrial fibrillation. Impression: Recurrent AF baseline Sinus bradycardia , asymptomatic, however limits dose of AV елена blockers Low risk of cardioembolic stroke, [id number] score of 0. Plan: Schedule for discharge on rhythm control strategy with metoprolol succinate 25 mg by mouth daily unchanged compared to prior to this hospitalization and flecainide new medication 50 mg by mouth twice a day. Resume past dose of enteric-coated aspirin 81 mg daily for stroke prophylaxis. This had recently been held as an outpatient due to concerns of anemia, but his blood counts have been stable/normal hospital. Given his low risk of cardiac embolic stroke, at this point, I do not think systemic anticoagulation with Coumadin or an direct oral anticoagulant is necessary. Outpatient follow-up as outlined above. Laboratory Results Last 24 Hours Test 10/13/16 10:10 10/14/16 05:33 Activated Partial Thromboplast Time 34.3 SECONDS Partial Thromboplastin Ratio 1.3 White Blood Count 4.15 K/uL Red Blood Count 4.45 M/uL Hemoglobin 13.3 g/dL Hematocrit 39.0 % Mean Corpuscular Volume 87.6 fL Mean Corpuscular Hemoglobin 29.9 pg Mean Corpuscular Hemoglobin Concent 34.1 g/dl Platelet Count 154 K/uL Mean Platelet Volume 10.5 fL Neutrophils (%) (Auto) 51.6 % Lymphocytes (%) (Auto) 32.3 % Monocytes (%) (Auto) 10.8 % Eosinophils (%) (Auto) 4.1 % Basophils (%) (Auto) 1.0 % Neutrophils # (Auto) 2.14 K/uL Lymphocytes # (Auto) 1.34 K/uL Monocytes # (Auto) 0.45 K/uL Eosinophils # (Auto) 0.17 K/uL Basophils # (Auto) 0.04 K/uL RDW Standard Deviation 40.7 fL RDW Coefficient of Variation 12.6 % Immature Granulocyte % (Auto) 0.2 % Immature Granulocyte # (Auto) 0.01 K/uL Sodium Level 144 mmol/L Potassium Level 4.7 mmol/L Chloride Level 110 mmol/L Carbon Dioxide Level 30 mmol/L Anion Gap 4.0 mmol/L Blood Urea Nitrogen 17 mg/dl Creatinine 1.00 mg/dl Est Creatinine Clear Calc Drug Dose 103.3 ml/min Estimated GFR () 96.4 Estimated GFR (Non- 83.2 BUN/Creatinine Ratio 16.7 Random Glucose 98 mg/dl Calcium Level 8.5 mg/dl
[2016-10-14 11:41] VITALS: BP 127/72; PULSE 65; TEMP 36.6; O2SAT 98
--- NOTE | 2016-10-14 12:57 | Progress Note ---
Medicine Progress Note Date & Time of Visit: Oct 14, 2016 at 12:54. Subjective Pt was seen and examined Sitting in bed with no distress with at bedside Pt said that he feels fine He has been walking around with no distress pt denies any chest pain, palpitation, dizziness and sob Objective Last 8 Hrs Date Time Temp Pulse Resp B/P (MAP) Pulse Ox O2 Delivery O2 Flow Rate FiO2 10/14/16 12:00 Room Air 10/14/16 11:41 36.6 65 16 127/72 (90) 98 10/14/16 08:00 Room Air 10/14/16 07:56 36.5 46 16 119/77 (91) 96 Physical Exam: General- No acute distress Head- atraumatic Eyes- PERRL, EOMI ENT- oropharynx clear Neck- supple, no JVD Lungs- clear to auscultation and percussion Heart- regular rhythm; no murmur Abdomen- normal bowel sounds, soft Extremities- no pretibial edema, no calf tenderness Neuro- alert, oriented x 3; PERRL, EOMI; no facial palsy; no dysarthria Skin- warm & dry Laboratory Results: Last 24 Hours Test 10/14/16 05:33 White Blood Count 4.15 K/uL Red Blood Count 4.45 M/uL Hemoglobin 13.3 g/dL Hematocrit 39.0 % Mean Corpuscular Volume 87.6 fL Mean Corpuscular Hemoglobin 29.9 pg Mean Corpuscular Hemoglobin Concent 34.1 g/dl Platelet Count 154 K/uL Mean Platelet Volume 10.5 fL Neutrophils (%) (Auto) 51.6 % Lymphocytes (%) (Auto) 32.3 % Monocytes (%) (Auto) 10.8 % Eosinophils (%) (Auto) 4.1 % Basophils (%) (Auto) 1.0 % Neutrophils # (Auto) 2.14 K/uL Lymphocytes # (Auto) 1.34 K/uL Monocytes # (Auto) 0.45 K/uL Eosinophils # (Auto) 0.17 K/uL Basophils # (Auto) 0.04 K/uL RDW Standard Deviation 40.7 fL RDW Coefficient of Variation 12.6 % Immature Granulocyte % (Auto) 0.2 % Immature Granulocyte # (Auto) 0.01 K/uL Sodium Level 144 mmol/L Potassium Level 4.7 mmol/L Chloride Level 110 mmol/L Carbon Dioxide Level 30 mmol/L Anion Gap 4.0 mmol/L Blood Urea Nitrogen 17 mg/dl Creatinine 1.00 mg/dl Est Creatinine Clear Calc Drug Dose 103.3 ml/min Estimated GFR () 96.4 Estimated GFR (Non- 83.2 BUN/Creatinine Ratio 16.7 Random Glucose 98 mg/dl Calcium Level 8.5 mg/dl Assessment & Plan Recurrent Paroxysmal atrial fibrillation EKG on admission showed Atrial fibrillation with rapid ventricular response rate is controlled Converted back to NSR spontaneously this morning On heparin drip Received cardizem 20mg x1 IV Asymptomatic Pt stopped asa due to mild anemia, Will resume aspirin CHADSVASC score of 0 Continue metoprolol 25mg daily Cardiology on board recommended to discharge on flecainide 50mg BID and metoprolol succinate 25mg daily Low risk for cardiac embolic stroke, cardio recommends to continue aspirin, no anticoagulant Follow up with cardiology in 2 weeks as an outpatient Echo done: * There is normal left ventricular wall thickness. * The left ventricular wall motion is normal. * Ejection Fraction = 60-65%. * The right ventricle is normal in size and function. * Trace aortic regurgitation. Dyslipidemia Continue Lipitor Anxiety On lorazepam prn DVT px on Heparin drip was changed to xarelto in the hospital Code Status Full code Consultants: cardiology Current Inpatient Medications: Current Inpatient Medications Medications (Trade) Dose Ordered Sig/Jv Route Start Time Stop Time Status Last Admin Dose Admin Acetaminophen (Tylenol Tab) 650 mg Q4H PRN PO 10/13/16 03:15 11/12/16 03:14 Nitroglycerin (Nitrostat Tab) 0.4 mg UD PRN SL 10/13/16 03:15 11/12/16 03:14 Atorvastatin Calcium (Lipitor Tab) 20 mg QAM PO 10/13/16 09:00 11/12/16 08:59 10/14/16 08:13 20 MG Metoprolol Succinate (Toprol Xl Tab) 25 mg DAILY PO 10/14/16 09:00 11/13/16 08:59 10/14/16 08:13 25 MG Tramadol HCl (Ultram Tab) 25 mg Q6H PRN PO 10/13/16 03:15 11/12/16 03:14 Ondansetron HCl (Zofran Inj) 4 mg Q6H PRN IV 10/13/16 03:15 11/12/16 03:14 Lorazepam (Ativan Inj) 0.5 mg Q4H PRN IV 10/13/16 03:15 11/12/16 03:14 Morphine Sulfate (MoRPHine SULFATE INJ) 4 mg Q3H PRN IV 10/13/16 03:15 10/27/16 03:14 Lorazepam 0.5 mg/ Syringe 1 ml @ 1 mls/min Q4H PRN IV 10/13/16 03:30 11/12/16 03:29 Miscellaneous (Iv Fluids Completed) 1 ea PRN PRN N/A 10/13/16 07:30 10/13/17 07:29 Flecainide Acetate (Tambocor Tab) 50 mg Q12 PO 10/13/16 21:00 11/12/16 20:59 10/14/16 08:13 50 MG Aspirin (Ecotrin Tab) 81 mg QAM PO 10/15/16 09:00 11/14/16 08:59 UNV
[2016-10-14] MEDS ORDERED: TMB100 PO (13:06)
--- NOTE | 2016-10-14 13:15 | Discharge Instructions ---
Discharge Instructions Date of Service Oct 14, 2016. Admission Reason for Admission: Recurrent A-Fib Discharge Discharge Diagnosis / Problem: Paroxysmal atrial fibrillation, Dyslipidemia Discharge Goals Goal(s): Decrease discomfort, Improve function, Improve disease control Activity Recommendations Activity Limitations: resume your previous activity (as tolerated) . Instructions / Follow-Up Instructions / Follow-Up Follow up appointment with your primary care provider Dr. Alvarado on 10/22 at 2: 45 pm Follow up with Cardiology Dr. Gorman on 11/06 @ 7:45 am at the [facility]. Discharge Medications Flecainide 50 mg twice daily Toprol 25 mg daily, and ASA 81 mg daily. Current Hospital Diet Patient's current hospital diet: AHA Diet (Heart Healthy) Discharge Diet Recommended Diet: AHA Diet (Heart Healthy) Pending Studies Studies pending at discharge: no Medical Emergencies . Who to Call and When: Medical Emergencies: If at any time you feel your situation is an emergency, please call 911 immediately. . Non-Emergent Contact Non-Emergency issues call your: Primary Care Provider Call Non-Emergent contact if: you have any medication questions . . "Provider Documentation" section prepared by Ekta Matias. . VTE Core Measure Inpt VTE Proph given/why not?: Other Anticoagulation (Heparin drip and xarelto)
[2016-10-14 13:48] VITALS: BP 127/72; PULSE 65; TEMP 36.6; O2SAT 98
[2016-10-14] MEDS ORDERED: RIVAROXABAN 20 MG TAB PO SCH (16:00)
[2016-10-15] MEDS ORDERED: ASPIRIN 81 MG ECTAB PO SCH (09:00)
--- NOTE | 2016-10-16 00:04 | Discharge Summary ---
Discharge Summary Date of Service Oct 15, 2016. Discharge Summary Admission Date: Oct 13, 2016 at 02:34 Discharge Date: Oct 14, 2016 Discharge Disposition: Home Principal Diagnosis: AFIB Secondary Diagnoses/Problems: Paroxysmal atrial fibrillation Dyslipidemia Procedures: Interpretation Summary * Name: LISSET CENTENO Study Date: 10/13/2016 11:25 AM BP: 119/76 mmHg * Patient Location: [facility] HR: 47 * : 1960 (M/d/yyyy) Gender: Male Height: 73 in * Age: 56 yrs Ethnicity: [place] Weight: 230 lb * Ordering Physician: Samson Malcolm * Referring Physician: Self, Referred * Performed By: Helga Torres RCS * * Reason For Study: A-FIB * BSA: 2.3 m2 * -- Conclusions -- * There is normal left ventricular wall thickness. * The left ventricular wall motion is normal. * Ejection Fraction = 60-65%. * The right ventricle is normal in size and function. * Trace aortic regurgitation. Procedure Details * A complete two-dimensional transthoracic echocardiogram was performed (2D, M- mode, Doppler and color flow Doppler). Left Ventricle * The left ventricle is normal in size. * There is normal left ventricular wall thickness. * Left ventricular systolic function is normal. * Ejection Fraction = 60-65%. * The left ventricular wall motion is normal. Right Ventricle * The right ventricle is normal in size and function. * The right ventricular systolic function is normal as assessed by tricuspid annular plane systolic excursion (TAPSE) (normal >1.5 cm). Atria * The left atrial size is normal. * Right atrial size is normal. * There is no evidence of atrial septal defect, but resolution does not allow assessment for a patent foramen ovale. Mitral Valve * The mitral valve is normal. * There is no mitral valve stenosis. * Significant mitral regurgitation is absent. Tricuspid Valve * The tricuspid valve is normal. * There is no tricuspid stenosis. * Significant tricuspid regurgitation is absent. * Doppler findings do not suggest pulmonary hypertension. Aortic Valve * The aortic valve is trileaflet. * Aortic stenosis is absent. * Trace aortic regurgitation. Pulmonic Valve * The pulmonary valve is not well seen, but the Doppler examination is normal without significant regurgitation or stenosis. Great Vessels * The aortic root and proximal ascending aorta are normal sized. Pericardium/Pleural * There is no pericardial effusion. Great Vessels * Normal inferior vena cava diameter and respiratory variation suggests normal central venous pressure. Consultations: cardiology Medication Reconciliation New Medications: Flecainide Acetate (Flecainide Acetate) 100 Mg Tab 50 MG PO Q12 for 30 Days, #30 TAB Continued Medications: Aspirin (Aspirin EC Low Dose) 81 Mg Ectab 81 MG PO QAM for 100 Days, #100 Atorvastatin (Atorvastatin Calcium) 20 Mg Tab 20 MG PO QAM for 90 Days, #90 TAB Celecoxib (CeleBREX) 200 Mg Cap 200 MG PO QAM, CAP Metoprolol Succ (Toprol Xl) (Toprol-Xl) 25 Mg Tabcr 25 MG PO DAILY, #30 TAB Admission Information HPI (per Admitting provider): CHIEF COMPLAINT: AFib. HISTORY OF PRESENT ILLNESS: HX obtained from px and records. Medical history is significant for paroxysmal AFib, hyperlipidemia, arthritis. Recent confinement last year for AFib. Patient had spontaneous conversion to normal sinus rhythm. Discharged on Toprol XL and aspirin. Few weeks ago, the patient received a call from PCP. He was told that outpx blood work was normal except that patient was a little anemic. (outpx Hg 12.9, 09/12/16) No workup recommended at that time. Patient stopped taking aspirin because his stools kind of looked dark. No abdominal pian, no unusual weight loss. A week ago, the patient noted transient bubbling sensation in his heart, left-sided, palpitations, similar to sensation of irregular heart beat in the past. This morning, the patient woke up to go use the bathroom. After going back to bed, he felt funny sensation in his heart again. No actual chest pain. No actual shortness of breath. No unusual stress. In the Emergency Room, the patient noted to be in rapid AFib, heart rate 120s. Patient was given IV Cardizem and IV fluids. Heart rate currently 80s. Physical Exam (per Admitting): VITAL SIGNS: Blood pressure was noted to be 144/72, pulse rate 120 later 80, RR 18, temperature 36.6, sats 96 on room air. GENERAL: Noted to be obese, slightly anxious, no respiratory distress. SKIN: Normal color. HEENT: [place] palpebral conjunctivae. Dry mucosa. NECK: No JVD. Supple. CHEST: Clear to auscultation. HEART: Irregular. ABDOMEN: Soft. NT RECTAL: Intact sphincter. Brown stool, heme negative. EXTREMITIES: No edema. no tenderness NE no gross focality Hospital Course Recurrent Paroxysmal atrial fibrillation EKG on admission showed Atrial fibrillation with rapid ventricular response rate is controlled Converted back to NSR spontaneously this morning On heparin drip Received cardizem 20mg x1 IV Asymptomatic Pt stopped asa due to mild anemia, Will resume aspirin CHADSVASC score of 0 Continue metoprolol 25mg daily Cardiology on board recommended to discharge on flecainide 50mg BID and metoprolol succinate 25mg daily Low risk for cardiac embolic stroke, cardio recommends to continue aspirin, no anticoagulant Follow up with cardiology in 2 weeks as an outpatient Echo done: * There is normal left ventricular wall thickness. * The left ventricular wall motion is normal. * Ejection Fraction = 60-65%. * The right ventricle is normal in size and function. * Trace aortic regurgitation. Dyslipidemia Continue Lipitor Anxiety On lorazepam prn DVT px on Heparin drip was changed to xarelto in the hospital Code Status Full code Total time spent on discharge = 35 minutes This includes examination of the patient, discharge planning, medication reconciliation, and communication with other providers. Discharge Instructions Discharge Instructions Date of Service Oct 14, 2016. Admission Reason for Admission: Recurrent A-Fib Discharge Discharge Diagnosis / Problem: Paroxysmal atrial fibrillation, Dyslipidemia Discharge Goals Goal(s): Decrease discomfort, Improve function, Improve disease control Activity Recommendations Activity Limitations: resume your previous activity (as tolerated) . Instructions / Follow-Up Instructions / Follow-Up Follow up appointment with your primary care provider Dr. Alvarado on 10/22 at 2: 45 pm Follow up with Cardiology Dr. Gorman on 11/06 @ 7:45 am at the [facility]. Discharge Medications Flecainide 50 mg twice daily Toprol 25 mg daily, and ASA 81 mg daily. Current Hospital Diet Patient's current hospital diet: AHA Diet (Heart Healthy) Discharge Diet Recommended Diet: AHA Diet (Heart Healthy) Pending Studies Studies pending at discharge: no Medical Emergencies . Who to Call and When: Medical Emergencies: If at any time you feel your situation is an emergency, please call 911 immediately. . Non-Emergent Contact Non-Emergency issues call your: Primary Care Provider Call Non-Emergent contact if: you have any medication questions . . "Provider Documentation" section prepared by Ekta Matias. . VTE Core Measure Inpt VTE Proph given/why not?: Other Anticoagulation (Heparin drip and xarelto) Additional Copies To Manuel Alvarado M.D.
== END 2016-10-14 14:00 | disposition home or self-care (01) ==
LOC: C.EDB 01:09 → C.MED 02:34 → ENRESERV 02:51
PROVIDERS: ADMIT Internal Medicine; ATTEND Internal Medicine
DX: I48.0 Paroxysmal atrial fibrillation (principal); E78.5 Hyperlipidemia, unspecified; M19.90 Unspecified osteoarthritis, unspecified site; Z79.82 Long term (current) use of aspirin; Z82.49 Family history of ischemic heart disease and other diseases of the circulatory system; Z82.3 Family history of stroke